=== PATIENT | female | born 2000 | race Hispanic/Latino ===

== ENCOUNTER 2018-03-17 14:43 | Emergency (ER) | payer SELFPAY ==
[2018-03-17 15:02] VITALS: RESP 18; O2SAT 98
--- NOTE | 2018-03-17 15:16 | ED PDOC ---
Upper Extremity Pain/Injury Time Seen by Provider: 03/17/18 15:13 Chief Complaint (Nursing): Finger,Hand,&Wrist Chief Complaint (Provider): Finger,Hand,&Wrist History Per: Patient History/Exam Limitations: no limitations Onset/Duration Of Symptoms: Persistent (x1 week) Current Symptoms Are (Timing): Still Present Additional Complaint(s): 17 year old female presents to the emergency department for an evaluation of a mild puncture wound to her right hand associated with pain when she bends the joints. Patient states a piece of broken glass may have been embedded in right pinky 1 week ago while cleaning up a broken glass. She further reports that the pain has been gradual since onset and was intense last night, prompting ED visit. PMD: Shaik Isacc MD Past Medical History Reviewed: Historical Data, Nursing Documentation, Vital Signs Vital Signs: Last Vital Signs Temp 98.7 F 03/17/18 14:57 Pulse 66 03/17/18 14:57 Resp 18 03/17/18 14:57 BP 121/80 03/17/18 14:57 Pulse Ox 98 03/17/18 14:57 - Medical History PMH: No Chronic Diseases - Surgical History Surgical History: No Surg Hx - Family History Family History: States: Unknown Family Hx - Home Medications Home Medications: Ambulatory Orders Medication Instructions Recorded Cephalexin [Keflex] 500 mg PO QID #20 cap 05/20/14 Ibuprofen [Motrin Tab] 800 mg PO Q6H PRN #20 tab 03/17/18 - Allergies Allergies/Adverse Reactions: Allergies Allergy/AdvReac Type Severity Reaction Status Date / Time No Known Allergies Allergy Verified 03/17/18 14:57 Review of Systems ROS Statement: Except As Marked, All Systems Reviewed And Found Negative Musculoskeletal: Positive for: Hand Pain (right-sided 5th digit) Physical Exam - Reviewed Nursing Documentation Reviewed: Yes Vital Signs Reviewed: Yes - Physical Exam Appears: Positive for: Non-toxic, No Acute Distress Head Exam: Positive for: ATRAUMATIC, NORMAL INSPECTION, NORMOCEPHALIC Skin: Positive for: Normal Color Eye Exam: Positive for: Normal appearance ENT: Positive for: Normal ENT Inspection Neck: Positive for: Normal Respiratory: Positive for: Normal Breath Sounds Extremity: Positive for: Normal ROM (right hand and digits), Tenderness ( anterior aspect of right 5th PIP and DIP), Other (small scar anteriorly to lateral bone of 5th right digit without pain on full extension). Negative for: Swelling (right hand) Neurologic/Psych: Positive for: Alert (x3), Oriented. Negative for: Motor/ Sensory Deficits - ECG O2 Sat by Pulse Oximetry: 98 (RA) Pulse Ox Interpretation: Normal Medical Decision Making Medical Decision Making: Initial Plan: * Xray hand, 5th digit (right) Possible FB proximal area of the middle phalange. Discussed f/u with hand specialist. Scribe Attestation: Documented by Nina Espinoza, acting as a scribe for Mary Zhang PA-C. Provider Scribe Attestation: All medical record entries made by the Scribe were at my direction and personally dictated by me. I have reviewed the chart and agree that the record accurately reflects my personal performance of the history, physical exam, medical decision making, and the department course for this patient. I have also personally directed, reviewed, and agree with the discharge instructions and disposition. Disposition - Clinical Impression Clinical Impression: Foreign body of finger - Disposition Referrals: Margo Chavis MD [Medical Doctor] - Duane Capps MD [Medical Doctor] - Disposition: Routine/Home Disposition Time: 16:00 Condition: STABLE Prescriptions: Ibuprofen [Motrin Tab] 800 mg PO Q6H PRN #20 tab PRN Reason: Pain Instructions: Foreign Body in Skin Forms: [employer] (Mauritian)
--- NOTE | 2018-03-17 17:10 | RAD ---
PROCEDURE: Right small finger radiographs. HISTORY: Possible foreign body COMPARISON: None. TECHNIQUE: AP radiograph of the right hand, as well as spot oblique and lateral images of small finger were obtained. FINDINGS: RIGHT SMALL FINGER: Normal right small finger, without fracture or focal lesion. Remainder of the right hand (as seen on the AP view) grossly unremarkable. JOINTS: Normal. SOFT TISSUES: Normal. OTHER FINDINGS: None. IMPRESSION: . No definitive radiographic evidence of acute displaced fracture nor dislocation. If symptoms persist or occult fracture suspected clinically recommend repeat radiographs in 5-10 days as most fractures should become radiographically evident in this timeframe. .
[2018-03-17 19:05] VITALS: BP 110/70; PULSE 78; TEMP 98
== END 2018-03-17 19:05 | disposition home or self-care (01) ==
LOC: H.ER 14:43
DX: S60.453A Superficial foreign body of left middle finger, initial encounter (principal); W25.XXXA Contact with sharp glass, initial encounter; Y92.89 Other specified places as the place of occurrence of the external cause